=== PATIENT | female | born 1990 | race Caucasian/White ===

== ENCOUNTER 2016-04-23 23:20 | Emergency (ER) | payer MEDICAID ==
[2016-04-23] MEDS ORDERED: IPRATROPIUM/ALBUTEROL 0.5-2.5 MG/3 ML AMPUL NEB ONE ×2 (23:36→23:38)
[2016-04-23] MEDS ORDERED: METHYLPREDNISOLONE INJ 125 MG/2 ML SDV IV ONE (23:36)
[2016-04-23] MEDS ORDERED: METHYLPREDNISOLONE INJ 125 MG/2 ML SDV ONE (23:39)
[2016-04-23] MEDS ORDERED: ALBUTEROL SULFATE 0.083% NEB 2.5 MG/3 ML AMPUL NEB SCH (23:51)
[2016-04-23] MEDS ORDERED: MAGNESIUM SULFATE/D5W 1 GM/100 ML RTUPB IV ONE ×2 (23:53→23:54)
[2016-04-24 00:04] LABS: ABSOLUTE BASOPHILS # (AUTO) 0.1 10^3/uL (0.0-0.2); ABSOLUTE EOSINOPHILS # (AUTO) 0.8 10^3/uL (0.0-0.6); ABSOLUTE LYMPHOCYTES (AUTO) 3.8 10^3/uL (0.5-4.7); ABSOLUTE MONOCYTES (AUTO) 0.9 10^3/uL (0.1-1.4); ABSOLUTE NEUT (AUTO) 7.1 10^3/uL (1.7-8.2); BASOPHILS % (AUTO) 1.1 % (0-2); HEMOGLOBIN 13.3 g/dL (12.0-15.5); HGB HCT DIFFERENCE -1.1; LYMPHOCYTES % (AUTO) 29.7 % (13-45); MEAN CORPUSCULAR HEMOGLOBIN 26.9 pg (27.0-33.4); MEAN CORPUSCULAR HGB CONC 32.5 g/dL (32.0-36.0); MEAN CORPUSCULAR VOLUME 83 fl (80-97); MONOCYTES % (AUTO) 6.8 % (3-13); RED BLOOD COUNT 4.94 10^6/uL (3.72-5.28); RED CELL DISTRIBUTION WIDTH 14.9 % (11.5-14.0); SEGMENTED NEUTROPHILS % (AUTO) 56.4 % (42-78); WHITE BLOOD COUNT 12.6 10^3/uL (4.0-10.5)
[2016-04-24 00:17] LABS: ALANINE AMINOTRANSFERASE 46 U/L (9-52); ALKALINE PHOSPHATASE 92 U/L (38-126); ANION GAP 9 (5-19); ASPARTATE AMINO TRANSFERASE 28 U/L (14-36); BILIRUBIN,TOTAL 0.3 mg/dL (0.2-1.3); BLOOD UREA NITROGEN 9 mg/dL (7-20); CALCIUM 9.5 mg/dL (8.4-10.2); CARBON DIOXIDE 26 mmol/L (22-30); CHLORIDE 107 mmol/L (98-107); CREATININE RESULT 0.87 mg/dL (0.52-1.25); GLUCOSE 92 mg/dL (75-110); POTASSIUM 4.2 mmol/L (3.6-5.0); SODIUM 142.1 mmol/L (137-145)
--- NOTE | 2016-04-24 00:31 | ER Document Report ---
ED Respiratory Problem - General Chief Complaint: Asthma Exacerbation Stated Complaint: BREATHING DIFFICULTY Time seen by provider: 00:31 Mode of Arrival: Ambulatory Information source: Patient TRAVEL OUTSIDE OF THE [place] IN LAST 30 DAYS: No - HPI Patient complains to provider of: Asthma, Cough, Short of breath Onset: Yesterday Duration: Worse/persistent Initiating Event: URI Quality of pain: No pain Context: Smoker Short of Breath: Moderate Chest pain/discomfort: Tightness Cough: Productive Sputum amount: Small Sputum color: Clear Sputum consistency: Mucoid Associated symptoms: Congestion, Cough, Difficulty breathing Similar symptoms previously: Yes Recently seen / treated by doctor: No Notes: Patient is a 26-year-old female with a history of asthma who smokes, presenting to the emergency room complaining of cough, wheezing, chest tightness, and difficulty breathing that started yesterday evening and worsened today, she currently has no inhalers or nebulizer treatments at home, she denies a fever, no recent antibiotics or steroids - Related Data Allergies/Adverse Reactions: No Known Allergies Allergy (Verified 04/23/16 23:33) Past Medical History - General Information source: Patient - Social History Smoking Status: Current Every Day Smoker Chew tobacco use (# tins/day): No Frequency of alcohol use: None Drug Abuse: None Family History: Arthritis, DM, Hyperlipidemia, Hypertension, Thyroid Disfunction. denies: CAD, CVA, Malignancy Patient has suicidal ideation: No Patient has homicidal ideation: No Pulmonary Medical History: Reports: Hx Asthma Neurological Medical History: Reports: Hx Migraine Renal/ Medical History: Reports: Hx Kidney Stones. Denies: Hx Peritoneal Dialysis Psychiatric Medical History: Reports: Hx Depression Past Surgical History: Reports: Hx Adenoidectomy, Hx Tonsillectomy - Immunizations Immunizations up to date: Yes Hx Diphtheria, Pertussis, Tetanus Vaccination: Yes - 2011 Hx Pneumococcal Vaccination: 12/02/11 Review of Systems - Review of Systems Constitutional: No symptoms reported EENT: No symptoms reported Cardiovascular: No symptoms reported Respiratory: See HPI Gastrointestinal: No symptoms reported Genitourinary: No symptoms reported Female Genitourinary: No symptoms reported Musculoskeletal: No symptoms reported Skin: No symptoms reported Hematologic/Lymphatic: No symptoms reported Neurological/Psychological: No symptoms reported -: Yes All other systems reviewed and negative Physical Exam - Vital signs Vitals: Temp Pulse Resp BP Pulse Ox 98.5 F 110 H 28 H 127/87 H 92 04/23/16 23:28 04/23/16 23:28 04/23/16 23:28 04/23/16 23:28 04/23/16 23:28 Interpretation: Tachycardic, Tachypneic - General General appearance: Appears well, Alert - HEENT Head: Normocephalic, Atraumatic Eyes: Normal Pupils: PERRL - Respiratory Respiratory status: Tachypnea Chest status: Nontender Breath sounds: Nonproductive cough, Wheezing Chest palpation: Normal - Cardiovascular Rhythm: Regular Heart sounds: Normal auscultation Murmur: No - Abdominal Inspection: Normal Distension: No distension Bowel sounds: Normal Tenderness: Nontender Organomegaly: No organomegaly - Back Back: Normal, Nontender - Extremities General upper extremity: Normal inspection, Nontender, Normal color, Normal ROM , Normal temperature General lower extremity: Normal inspection, Nontender, Normal color, Normal ROM , Normal temperature, Normal weight bearing. No: Bev's sign - Neurological Neuro grossly intact: Yes Cognition: Normal Orientation: AAOx4 [place] Coma Scale Eye Opening: Spontaneous [place] Coma Scale Verbal: Oriented [place] Coma Scale Motor: Obeys Commands [place] Coma Scale Total: 15 Speech: Normal Motor strength normal: LUE, RUE, LLE, RLE Sensory: Normal - Psychological Associated symptoms: Normal affect, Normal mood - Skin Skin Temperature: Warm Skin Moisture: Dry Skin Color: Normal Course - Re-evaluation Re-evalutation: 04/24/16 01:31 Issue resting comfortably, reports feeling much better - Vital Signs Vital signs: Temp Pulse Resp BP Pulse Ox 98.5 F 110 H 34 H 113/96 H 91 L 04/23/16 23:28 04/23/16 23:28 04/24/16 01:00 04/24/16 00:23 04/24/16 01:00 - Laboratory Result Diagrams: 04/23/16 23:49 04/23/16 23:49 Laboratory results interpreted by me: 04/23/16 23:49 WBC 12.6 H MCH 26.9 L RDW 14.9 H Absolute Eosinophils 0.8 H - Diagnostic Test Radiology reviewed: Image reviewed, Reports reviewed Discharge - Discharge Clinical Impression: Acute asthma exacerbation Qualifiers: Asthma severity: mild persistent Qualified Code(s): J45.31 - Mild persistent asthma with (acute) exacerbation Condition: Stable Disposition: HOME, SELF-CARE Instructions: Inhaled Bronchodilators ([facility]), Stop Smoking ([facility]), Asthma ([facility]) Additional Instructions: Follow up with your primary care provider in one to 2 days. Return to the emergency room immediately if symptoms worsen or any additional concerns. Prescriptions: Albuterol Sulfate [Proair HFA Inhalation Aerosol 8.5 gm MDI] 1 puff IH Q4 PRN # 1 mdi PRN Reason: Azithromycin [Zithromax 250 mg Tablet] 250 mg PO ASDIR PRN #4 tablet PRN Reason: Prednisone 40 mg PO DAILY #8 tablet Referrals: EVAN FRANCIS MD [Primary Care Provider] - Follow up as needed
[2016-04-24] MEDS ORDERED: AZITHROMYCIN 250 MG TABLET PO ONE (01:33)
[2016-04-24] MEDS ORDERED: ALBUTEROL SULFATE HFA (90 MCG/PUFF) 8 GM MDI (1 MDI/ER DISP) IH SCH (02:00)
[2016-04-24 02:05] VITALS: BP 126/82
== END 2016-04-24 02:05 | disposition home or self-care (01) ==
LOC: ER 23:20
DX: J45.31 Mild persistent asthma with (acute) exacerbation (principal); R05 Cough; R06.02 Shortness of breath; R07.89 Other chest pain; F17.200 Nicotine dependence, unspecified, uncomplicated
CPT/HCPCS: 94640 ×2; 99285; 96375; 96365; 36415; 84703; 85025; 80053; 71020; Q0144; J2930; J3475; J3490; J7620

== ENCOUNTER 2017-03-24 18:03 | Emergency (ER) | payer SELFPAY ==
[2017-03-24 19:04] LABS: EPITHELIALS (WET MOUNT) 3+ EPITHELIALS SEEN; RBCS (WET MOUNT) NO RBCS SEEN; T.VAGINALIS (WET MOUNT) NO TRICHOMONAS SEEN; WBCS (WET MOUNT) 2+ WBCS SEEN; YEAST (WET MOUNT) NO YEAST SEEN
[2017-03-24 19:17] LABS: A TYPE INFLUENZA AG NEGATIVE (NEGATIVE); B INFLUENZA AG NEGATIVE (NEGATIVE)
[2017-03-24 19:40] LABS: APPEARANCE,URINE CLEAR; BILIRUBIN,URINE NEGATIVE (NEGATIVE); COLOR,URINE YELLOW; GLUCOSE, URINE NEGATIVE (NEGATIVE); KETONES,URINE NEGATIVE (NEGATIVE); LEUKOCYTE ESTERASE,URINE TRACE (NEGATIVE); NITRITE,URINE NEGATIVE (NEGATIVE); PROTEIN,URINE NEGATIVE (NEGATIVE); URINE SPECIFIC GRAVITY 1.018; UROBILINOGEN,URINE NEGATIVE mg/dL (<2.0)
[2017-03-24] MEDS ORDERED: AZITHROMYCIN 250 MG TABLET PO ONE (19:59)
[2017-03-24] MEDS ORDERED: CEFTRIAXONE INJ 250 MG VIAL IM ONE (19:59)
[2017-03-24] MEDS ORDERED: LIDOCAINE 1% INJ-PF (10 MG/ML) 30 ML SDV INJ ONE (19:59)
--- NOTE | 2017-03-24 20:02 | ER Document Report ---
ED GI/ - General Chief Complaint: Flu Symptoms Stated Complaint: PELVIC PAIN Time Seen by Provider: 03/24/17 18:29 Mode of Arrival: Ambulatory Information source: Patient Notes: 26-year-old female presents to ED for complaint of flulike symptoms for several days. She states she is also concerned for occasional pelvic pain and has not had a period since November. States she had a positive at home and would like a test while she is here. Patient is alert oriented speaks in full sentences able to walk with his even steady gait and no respiratory distress or any other distress noted. She is here with her 2 children. TRAVEL OUTSIDE OF THE [place] IN LAST 30 DAYS: No - HPI Patient complains to provider of: Pelvic pain, Other - Flulike symptoms Onset: Other - No period since November flu symptoms for the last couple days. States she has had pelvic pain off and on. Timing/Duration: Intermittent Quality of pain: Achy Severity at maximum: Moderate Severity in ED: Mild Pain Level: 1 Location: Pelvis Vaginal bleeding (Compared to normal period): None Menstrual period history: Missed LMP: November 2016 Associated symptoms: Other - No. Since November pelvic pain off and on some vaginal discharge and flulike symptoms Exacerbated by: Denies Relieved by: Denies Similar symptoms previously: Yes Recently seen / treated by doctor: No - Related Data Allergies/Adverse Reactions: No Known Allergies Allergy (Verified 03/24/17 18:04) Past Medical History - General Information source: Patient - Social History Smoking Status: Current Every Day Smoker Cigarette use (# per day): Yes - 5 cigarettes a day Chew tobacco use (# tins/day): No Smoking Education Provided: Yes - 4 minutes Frequency of alcohol use: None Drug Abuse: None Occupation: None Family History: Arthritis, COPD, CVA, DM, Hyperlipidemia, Hypertension, Thyroid Disfunction. denies: CAD, Malignancy Patient has suicidal ideation: No Patient has homicidal ideation: No - Past Medical History Cardiac Medical History: Reports: None Pulmonary Medical History: Reports: Hx Asthma EENT Medical History: Reports: None Neurological Medical History: Reports: Hx Migraine Endocrine Medical History: Reports: None Renal/ Medical History: Reports: Hx Kidney Stones Malignancy Medical History: Reports: None GI Medical History: Reports: None Musculoskeltal Medical History: Reports None Skin Medical History: Reports None Psychiatric Medical History: Reports: Hx Depression Traumatic Medical History: Reports: None Infectious Medical History: Reports: None Past Surgical History: Reports: Hx Adenoidectomy, Hx Tonsillectomy - Immunizations Immunizations up to date: Yes Hx Diphtheria, Pertussis, Tetanus Vaccination: Yes - 2011 Hx Pneumococcal Vaccination: 12/02/11 Review of Systems - Review of Systems Constitutional: Chills, Fever, Recent illness EENT: Nose discharge, Sinus discharge Cardiovascular: No symptoms reported Respiratory: Cough Gastrointestinal: No symptoms reported Genitourinary: No symptoms reported Female Genitourinary: Vaginal discharge, Other - Pelvic pain no. Since November Musculoskeletal: No symptoms reported Skin: No symptoms reported Hematologic/Lymphatic: No symptoms reported Neurological/Psychological: No symptoms reported -: Yes All other systems reviewed and negative Physical Exam - Vital signs Vitals: Temp Pulse Resp BP Pulse Ox 98.6 F 103 H 18 129/79 H 98 03/24/17 18:27 03/24/17 18:27 03/24/17 18:27 03/24/17 18:27 03/24/17 18:27 Interpretation: Normal - General General appearance: Appears well, Alert - HEENT Head: Normocephalic, Atraumatic Eyes: Normal Pupils: PERRL Ears: Normal External canal: Normal Tympanic membrane: Normal Sinus: Normal Nasal: Purulent discharge, Swelling Mouth/Lips: Normal Mucous membranes: Normal Pharynx: Normal Neck: Normal - Respiratory Respiratory status: No respiratory distress Chest status: Nontender Breath sounds: Normal Chest palpation: Normal - Cardiovascular Rhythm: Regular Heart sounds: Normal auscultation Murmur: No - Abdominal Inspection: Normal Distension: No distension Bowel sounds: Normal Tenderness: Nontender Organomegaly: No organomegaly - Genitourinary External exam: Normal Notes: Patient self swabbed for GC and chlamydia and wet mount as she did not want to have a pelvic in front of her children no abdominal tenderness no pelvic tenderness noted - Back Back: Normal, Nontender - Extremities General upper extremity: Normal inspection, Nontender, Normal color, Normal ROM , Normal temperature General lower extremity: Normal inspection, Nontender, Normal color, Normal ROM , Normal temperature, Normal weight bearing. No: Bev's sign - Neurological Neuro grossly intact: Yes Cognition: Normal Orientation: AAOx4 [place] Coma Scale Eye Opening: Spontaneous [place] Coma Scale Verbal: Oriented [place] Coma Scale Motor: Obeys Commands [place] Coma Scale Total: 15 Speech: Normal Motor strength normal: LUE, RUE, LLE, RLE Sensory: Normal - Psychological Associated symptoms: Normal affect, Normal mood - Skin Skin Temperature: Warm Skin Moisture: Dry Skin Color: Normal Course - Re-evaluation Re-evalutation: 03/24/17 23:56 Patient's assessment consistent with an upper respiratory infection. Flu test was negative. Urine was positive for negative for UTI wet mount was negative 03/24/17 23:56 Patient received her results from her GC and chlamydia before being discharged. - Vital Signs Vital signs: Temp Pulse Resp BP Pulse Ox 98.7 F 100 16 122/78 97 03/24/17 20:42 03/24/17 20:42 03/24/17 20:42 03/24/17 20:42 03/24/17 20:42 - Laboratory Laboratory results interpreted by me: 03/24/17 19:21 Ur Leukocyte Esterase TRACE H Urine HCG, Qual POSITIVE H Discharge - Discharge Clinical Impression: Pelvic pain, Viral respiratory illness Qualifiers: Weeks of gestation: less than 8 weeks Qualified Code(s): Z3A.01 - Less than 8 weeks gestation of Condition: Stable Disposition: HOME, SELF-CARE Instructions: [facility] [facility] Additional Instructions: UPPER RESPIRATORY ILLNESS: You have a viral infection of the respiratory passages -- a "cold." This common infection causes nasal congestion, drainage, and often sore throat and cough. It is highly contagious. The disease usually lasts about 10 to 14 days. There is no "cure" for the viral infection -- it must run its course. If there is a complication, such as bacterial infection in the nose, sinuses, middle ear, or bronchial tubes, antibiotics may be required. The antibiotics won't affect the virus. Drink plenty of fluids. A humidifier may help. An expectorant medication or decongestant may make you more comfortable. Use acetaminophen or ibuprofen for fever or aches. See the doctor if fever persists over two days, if there is any significant worsening of your symptoms, or if you simply fail to improve as expected. PELVIC PAIN: There are many causes of pain in the pelvic area. The cause could be the tubes, ovaries, uterus, intestines, appendix, pelvic muscles and connective tissue, or the urinary tract. The cause of your pelvic pain is not clear. However, it seems safe to treat you outside the hospital. If the pain sounds like a temporary problem, we sometimes wait to see if it goes away. Other patients may need additional tests, such as pelvic ultrasound or cultures. Conditions may change. Call us or come back for reexamination if any problems occur, such as: (1) Pain that becomes more severe, steady, or becomes concentrated in one specific area. Also, pain that is more severe with movement or coughing. (2) Vomiting that persists or becomes more frequent. (3) Blood in the vomitus, urine, or bowel movements. Blood in the stool may have a tarry or black appearance. (4) Shaking chills or fever greater than 100 degrees. (5) The abdomen becomes more distended or swollen. (6) Bowel movements cease. (7) Heavy vaginal bleeding. You are . care is best started as early in as possible. If you're unsure about continuing this , you should discuss this with your physician or with inside sales representative at [facility]. You should take only medications approved by your physician. Acetaminophen can safely be taken for minor pains. As a rule, medication for chronic conditions such as asthma or seizures can safely be continued. You should discuss with the physician every medicine you take. Any regular exercise program can be continued. Talk to your physician, however, before engaging in competitive or demanding sports. Alcohol, smoking, and "street drugs" are dangerous to your baby. Cocaine is especially dangerous. Don't use any illicit drugs! CEPHALOSPORINS: An antibiotic of the cephalosporin class has been prescribed. This type of antibiotic covers a wide variety of infections, including those of the skin, lungs, middle ear, and urinary tract. This antibiotic is somewhat similar to the penicillin family. In rare cases , a person who is allergic to penicillin will also be allergic to this medication. If you have had a severe allergic reaction to penicillin, and have not taken this antibiotic since that time, notify your doctor. Antibiotics which cover many germs ("broad spectrum" antibiotics) are more likely to cause diarrhea or "yeast" infections. Women prone to vaginal yeast problems may suffer an attack after taking this antibiotic. In infants, oral thrush (white spots "stuck" on the cheek) or yeast diaper rash may result. See your doctor if these problems occur. Call the doctor at once if you develop hives, itching, shortness of breath , or lightheadedness. AZITHROMYCIN: Azithromycin (Zithromax) is a broad spectrum antibiotic in the same class as erythromycin. It can treat a variety of bacterial infections, but is most frequently used for respiratory infections. Azithromycin is extremely long-lasting. It accumulates in body tissues and continues to kill bacteria for many days. In order to improve absorption, Azithromycin should be taken at least one hour before or two hours after a meal. It does not have the same strong tendency to upset the stomach as erythromycin and is usually very well tolerated. Patients who have had a rash or other true allergic reactions to erythromycin should not take this medication. Call if you develop gastrointestinal distress, severe diarrhea, rash, hives, itching, or shortness of breath. USE OF ACETAMINOPHEN (Tylenol): Acetaminophen may be taken for pain relief or fever control. It's much safer than aspirin, offering a wider range of "safe" dosages. It is safe during . Some brand names are Tylenol, Panadol, Datril, Anacin 3, Tempra, and Liquiprin. Acetaminophen can be repeated every four hours. The following are maximum recommended dosages: >89 pounds or adults 650 mg to 900 mg Acetaminophen can be repeated every four hours. Maximum dose not to exceed 4000 mg a day. SMOKING: If you smoke, you should stop smoking. The tar and chemicals in cigarette smoke are harmful. Smoking has been shown to cause: emphysema chronic bronchitis lung cancer mouth and throat cancer stomach and pancreas cancer premature aging defects In addition, smoking increases ear and lung infections in children of smokers. FOLLOW-UP CARE: If you have been referred to a physician for follow-up care, call the physician s office for an appointment as you were instructed or within the next two days. If you experience worsening or a significant change in your symptoms, notify the physician immediately or return to the Emergency Department at any time for re-evaluation. Forms: Elevated Blood Pressure, Smoking Cessation Education Referrals: [facility] [Provider Group] - Follow up as needed
[2017-03-24 20:27] LABS: CHLAM PCR NOT DETECTED (NOT DETECT); GON PCR NOT DETECTED (NOT DETECT)
[2017-03-24 20:44] VITALS: BP 122/78
== END 2017-03-24 20:47 | disposition home or self-care (01) ==
LOC: ER 18:03
DX: O26.91 Pregnancy related conditions, unspecified, first trimester (principal); R10.2 Pelvic and perineal pain; J98.8 Other specified respiratory disorders; O99.331 Smoking (tobacco) complicating pregnancy, first trimester; F17.210 Nicotine dependence, cigarettes, uncomplicated; Z3A.01 Less than 8 weeks gestation of pregnancy
CPT/HCPCS: 99406; 99284; 96372; 87210; 81025; 81001; 87491; 87591; 87804; J3490; J0696

== ENCOUNTER → 2017-04-30 | Outpatient (CLI) | payer SELFPAY ==
--- NOTE | 2017-04-30 16:44 | RADIOLOGY REPORT (SQ) ---
EXAM DESCRIPTION: U/S OB 14+ TRNABD 1GES W/O DOP COMPLETED DATE/TIME: 04/30/2017 3:34 pm REASON FOR STUDY: ENCOUNTER OR SUPERVISION OF OTHER NORMAL , SECOND TRIMESTER Z34.82 ENCOU NTER FOR SUPRVSN OF NORMAL , SECOND TRI COMPARISON: Somewhat limited by body habitus position and movement lack of distention urinary bladder. TECHNIQUE: Static and Dynamic grayscale imaging performed of gravid uterus using transabdominal appr oach. Additional selected color Doppler and spectral images recorded. All stored on PACS. LIMITATIONS: None. FINDINGS: EGA: 17 weeks 5 days ASHLYN: 10/06/2017 EFW: 201+/- 30 grams PERCENTILE: Not applicable. Fetus less than or equal to 20 weeks gestation. NICKOLAS: 4.9 cm PLACENTA: Posterior GRADE: I PRESENTATION: Variable ANATOMY: HEART RATE: 144 beats per minute. FOUR CHAMBER HEART: Not confirmed THREE VESSEL CORD: Yes. CORD INSERTION: Visualized. KIDNEYS AND BLADDER: Not well seen STOMACH: Visualized. Appears normal. SPINE: Not well seen BRAIN AND LATERAL VENTRICLES: Lateral ventricles normal. Brain not well seen. OTHER: There is a small hypoechoic area within the placenta measuring 2.2 x 1.3 x 1.9 cm. MATERNAL ADNEXA: Maternal ovaries not visualized. CERVICAL LENGTH: Not seen Closed. OTHER: No other significant finding. IMPRESSION: LIVING INTRAUTERINE . ESTIMATED GESTATIONAL AGE 17 weeks 5 days with an estimated date of delivery of 10/03/2017 Evaluation of anatomy is somewhat limited. There is a small placental venous mujica as an incide ntal finding. Trimester of : Second trimester - 13 weeks 1 day to 27 weeks 6 days. TECHNICAL DOCUMENTATION: JOB ID: [id number] [employer]- All Rights Reserved Reading location - IP/workstation name: [email or web address]
== END ==
LOC: RAD 14:39
PROVIDERS: ATTEND Nurse Practitioner Women's Health
DX: Z34.82 Encounter for supervision of other normal pregnancy, second trimester (principal)
CPT/HCPCS: 76805

== ENCOUNTER 2017-06-25 03:15 | Emergency (ER) | payer SELFPAY ==
[2017-06-25] MEDS ORDERED: IPRATROPIUM/ALBUTEROL 0.5-2.5 MG/3 ML AMPUL NEB ONE (03:22)
[2017-06-25] MEDS ORDERED: METHYLPREDNISOLONE INJ 125 MG/2 ML SDV IV ONE (03:22)
--- NOTE | 2017-06-25 03:25 | ER Document Report ---
ED General - General Chief Complaint: Asthma Exacerbation Stated Complaint: TROUBLE BREATHING Time Seen by Provider: 06/25/17 03:18 Notes: Patient is a pleasant 27-year-old female who presents with complaint of difficulty breathing. She is approximately 22 weeks . She said the last time she had asthma exacerbation like this was when she was with her first son. She is out of inhalers and her nebulizer machine is broken. She denies any recent fevers or infections. She says her breathing's been worsening over last to 3 days but became much worse tonight. She did have some leftover prednisone and she took 1 pill of prednisone 3 days ago. She denies any vomiting. She denies any significant abdominal pain other than some pain with coughing. She denies any vaginal bleeding or abnormal discharge and says her has otherwise been going well. She has no other complaints at this time. She has never been intubated for asthma. She has not been admitted in the last several years for asthma. TRAVEL OUTSIDE OF THE [place] IN LAST 30 DAYS: No - Related Data Allergies/Adverse Reactions: No Known Allergies Allergy (Verified 06/25/17 03:23) Past Medical History - Social History Smoking Status: Unknown if Ever Smoked Frequency of alcohol use: None Drug Abuse: None Family History: Arthritis, COPD, CVA, DM, Hyperlipidemia, Hypertension, Thyroid Disfunction. denies: CAD, Malignancy Pulmonary Medical History: Reports: Hx Asthma Neurological Medical History: Reports: Hx Migraine Renal/ Medical History: Reports: Hx Kidney Stones. Denies: Hx Peritoneal Dialysis Psychiatric Medical History: Reports: Hx Depression Past Surgical History: Reports: Hx Adenoidectomy, Hx Tonsillectomy - Immunizations Immunizations up to date: Yes Hx Diphtheria, Pertussis, Tetanus Vaccination: Yes - 2011 Hx Pneumococcal Vaccination: 12/02/11 Review of Systems - Review of Systems Notes: My Normal Review Basic REVIEW OF SYSTEMS: CONSTITUTIONAL : Denies fever, chills, or sweats. Denies recent illness. EENT: Denies eye, ear, throat, or mouth pain or symptoms. Denies nasal or sinus congestion. CARDIOVASCULAR: Denies chest pain. RESPIRATORY: Equal to breathing GASTROINTESTINAL: Denies abdominal pain. Denies nausea, vomiting, or diarrhea. Denies constipation. Last BM: GENITOURINARY: Denies difficulty urinating, painful urination, burning, frequency, or blood in urine. FEMALE GENITOURINARY: Denies vaginal bleeding, abnormal or irregular periods. LMP: Currently MUSCULOSKELETAL: Denies neck or back pain or joint pain or swelling. SKIN: Denies rash or skin lesions. NEUROLOGICAL: Denies altered mental status or loss of consciousness. Denies headache. Denies weakness or paralysis or loss of use of either side. Denies problems with gait or speech. Denies sensory or motor loss. ALL OTHER SYSTEMS REVIEWED AND NEGATIVE. Physical Exam - Vital signs Vitals: Pulse Resp BP Pulse Ox 113 H 30 H 113/77 90 L 06/25/17 03:23 06/25/17 03:23 06/25/17 03:23 06/25/17 03:23 - Notes Notes: General Appearance: Well nourished, alert, cooperative, moderate acute distress able to speak in 4-5 word sentences., no obvious discomfort. Vitals: reviewed, See vital signs table. Head: no swelling or tenderness to the head Eyes: PERRL, EOMI, Conjuctiva clear Mouth: No decreasd moisture Lungs: diffuse wheezing, No rales, No rhonci, mild accessory muscle use, fair air exchange bilaterally. Heart: Normal rate, Regular rythm, No murmur, no rub Abdomen: Normal BS, soft, No rigidity, No abdominal tenderness, No guarding, no rebound, no abdominal masses, no organomegaly Extremities: strength 5/5 in all extremities, good pulses in all extremities, no swelling or tenderness in the extremities, no edema. Skin: warm, dry, appropriate color, no rash Neuro: speech clear, oriented x 3, normal affect, responds appropriately to questions. Course - Re-evaluation Re-evalutation: 06/25/17 04:35 Patient is feeling much improved. Wheezing is now gone. We will monitor for another 30 minutes. If she continues to be wheezing free and look and feel well then she will be discharged home. 06/25/17 05:39 On reevaluation the patient continues to be free of wheezing and has good air movement and looks and feels well. She will be discharged home. I encouraged her return to ER immediately if she has recurrent difficulty breathing, fevers, or she feels unwell. Patient agrees with plan will be discharged home. Dictation of this chart was performed using voice recognition software; therefore, there may be some unintended grammatical errors. - Vital Signs Vital signs: Temp Pulse Resp BP Pulse Ox 113 H 18 123/70 92 06/25/17 03:23 06/25/17 05:00 06/25/17 04:01 06/25/17 05:00 Discharge - Discharge Clinical Impression: Asthma Qualifiers: Asthma severity: unspecified severity Asthma persistence: unspecified Asthma complication type: with acute exacerbation Qualified Code(s): J45.901 - Unspecified asthma with (acute) exacerbation Condition: Good Disposition: HOME, SELF-CARE Additional Instructions: ASTHMA: You have been diagnosed as having asthma. This is a condition where there is episodic tightness in the bronchial tubes. Allergies, infections, and polluted or cold air may be contributing factors. Emergency treatment of a severe asthma attack may include adrenaline shots , or bronchodilator aerosol. You may feel lightheaded, have a decreased exercise tolerance and a rapid pulse for an hour or two. Rest and get plenty of fluids. Home treatment of asthma requires bronchodilator drugs. These can be administered by injection, inhalation, or by mouth. Antibiotics and corticosteroids may be required for some patients. You should avoid chemical fumes, dusts, pollens, and exercising in very cold or dry air. If you smoke, stop!! If you develop a fever, increased wheezing, chest pain, or severe shortness of breath, you should contact the doctor immediately. STEROID MEDICATION: You have been given an injection of or oral medicine of the cortisone/ steroid class. This medication is used to control inflammation or allergy. Micah t is usually only given for a short period of time, until the acute process subsides. There are usually no side effects from short-term use of cortisone-like medications. Some persons feel an increased sense of well-being and are not sleepy at bedtime. Long-term use of cortisone medications is best avoided, unless required for a severe condition. If your condition does not remit, or relapses after the course of corticosteroid medication, you should consult your physician. INHALED BRONCHODILATORS: You have received treatment(s) of and/or prescription for an inhaled bronchodilator -- a medication which stimulates the airways in the lung to dilate. This improves the flow of air in asthma, bronchitis, and emphysema. These medicines have some similarity to adrenaline, and can cause similar side effects: shakiness, racing heart, and a sense of nervousness. These side effects decrease with time. Contact your doctor if these side effects are severe. Do not over-use the medicine. Too-frequent use of the inhaler may make it ineffective. Call your doctor if the inhaler is not controlling your symptoms at the prescribed doses. SMOKING: If you smoke, you should stop smoking. The tar and chemicals in cigarette smoke are harmful. Smoking has been shown to cause: emphysema chronic bronchitis lung cancer mouth and throat cancer stomach and pancreas cancer premature aging defects In addition, smoking increases ear and lung infections in children of smokers. FOLLOW-UP CARE: If you have been referred to a physician for follow-up care, call the physician s office for an appointment as you were instructed or within the next two days. If you experience worsening or a significant change in your symptoms, notify the physician immediately or return to the Emergency Department at any time for re-evaluation. Please use the inhaler as 2 puffs every 2-4 hours as needed for wheezing or difficulty breathing. Plesae return to the ER immediately if you have wheezingor diffiuclty breathing that is not improving with the inhaler. Prescriptions: Albuterol Sulfate [Albuterol Sulfate 2.5mg/3 mL] 2.5 mg IH Q4 PRN #25 vial PRN Reason: Prednisone 30 mg PO DAILY #12 tablet Forms: Return to Work
[2017-06-25] MEDS: MAGNESIUM SULFATE/D5W 1 GM/100 ML RTUPB IV SCH ×2 (03:32→03:33)
[2017-06-25] MEDS ORDERED: ALBUTEROL SULFATE HFA (90 MCG/PUFF) 8 GM MDI (1 MDI/ER DISP) IH ONE (04:40)
[2017-06-25 05:55] VITALS: BP 130/68
== END 2017-06-25 05:55 | disposition home or self-care (01) ==
LOC: ER 03:15
DX: O99.519 Diseases of the respiratory system complicating pregnancy, unspecified trimester (principal); J45.901 Unspecified asthma with (acute) exacerbation; O26.899 Other specified pregnancy related conditions, unspecified trimester; R05 Cough; Z3A.00 Weeks of gestation of pregnancy not specified
CPT/HCPCS: 94640; 99284; 96375; 96365; J2930; J3475; J3490; J7620

== ENCOUNTER → 2017-09-04 | Outpatient (CLI) | payer MEDICAID ==
--- NOTE | 2017-09-04 14:26 | RADIOLOGY REPORT (SQ) ---
EXAM DESCRIPTION: U/S OB 14+ TRNABD 1GES W/O DOP COMPLETED DATE/TIME: 09/04/2017 1:57 pm REASON FOR STUDY: Z34.83 ENCOUNTER FOR SUPRVSN OF NORMAL , THIRD TRIMESTER Z34.83 ENCOUNTE R FOR SUPRVSN OF NORMAL , THIRD TRIM COMPARISON: None. TECHNIQUE: Static and Dynamic grayscale imaging performed of gravid uterus using transabdominal appr oach. Additional selected color Doppler and spectral images recorded. All stored on PACS. LIMITATIONS: None. FINDINGS: EGA: 36 weeks 2 days ASHLYN: 09/30/2017 EFW: 2656+/- 393 grams PERCENTILE: 48 NICKOLAS: 8.4 PLACENTA: Fundal grade 2 PRESENTATION: Cephalic. ANATOMY: HEART RATE: 173 beats per minute. FOUR CHAMBER HEART: Visualized. THREE VESSEL CORD: Yes. CORD INSERTION: Visualized. KIDNEYS AND BLADDER: Visualized. Appear normal. STOMACH: Visualized. Appears normal. SPINE: Normal as visualized. BRAIN AND LATERAL VENTRICLES: Not well visualized. OTHER: No other significant finding. MATERNAL ADNEXA: Maternal ovaries not visualized. CERVICAL LENGTH: Not visualized OTHER: No other significant finding. IMPRESSION: LIVING INTRAUTERINE . ESTIMATED GESTATIONAL AGE 36 weeks 2 days NO VISUALIZED ANOMALIES. Trimester of : Third trimester - 28 weeks to delivery. TECHNICAL DOCUMENTATION: JOB ID: [id number] [employer]- All Rights Reserved Reading location - IP/workstation name: [email or web address]
== END ==
LOC: RAD 13:27
PROVIDERS: ATTEND Nurse Practitioner Women's Health
DX: Z34.83 Encounter for supervision of other normal pregnancy, third trimester (principal)
CPT/HCPCS: 76805

== ENCOUNTER 2017-09-18 04:37 | Inpatient (IN) | payer MEDICAID ==
[2017-09-18 05:25] LABS: APPEARANCE,URINE SLIGHTLY-CLOUDY; BILIRUBIN,URINE NEGATIVE (NEGATIVE); COLOR,URINE YELLOW; GLUCOSE, URINE NEGATIVE (NEGATIVE); KETONES,URINE NEGATIVE (NEGATIVE); LEUKOCYTE ESTERASE,URINE NEGATIVE (NEGATIVE); NITRITE,URINE NEGATIVE (NEGATIVE); PROTEIN,URINE 30 mg/dL (NEGATIVE); URINE SPECIFIC GRAVITY 1.018; UROBILINOGEN,URINE NEGATIVE mg/dL (<2.0)
[2017-09-18 05:29] LABS: AMNISURE (ROM) POSITIVE (NEGATIVE)
[2017-09-18 05:42] LABS: URINE AMPHETAMINES SCREEN NEGATIVE; URINE BARBITURATES SCREEN NEGATIVE; URINE BENZODIAZEPINES SCREEN NEGATIVE; URINE COCAINE SCREEN NEGATIVE; URINE METHADONE SCREEN NEGATIVE; URINE PHENCYCLIDINE SCREEN NEGATIVE
[2017-09-18 05:48] LABS: URINE MARIJUANA (THC) SCREEN UNCONFIRMED POSITIVE
[2017-09-18] MEDS ORDERED: RINGERS SOLUTION,LACTATED 1,000 ML IV ONE (05:49)
[2017-09-18] MEDS ORDERED: RINGERS SOLUTION,LACTATED 1,000 ML IV PRN (05:49)
[2017-09-18] MEDS ORDERED: PENICILLIN G POTASSIUM 5,000,000 UNIT in DEXTROSE 5%-WATER 100 ML IV ONE (05:49)
[2017-09-18] MEDS ORDERED: PENICILLIN G-K 5 MILLION UNIT VIAL ONE ×3 (06:00→14:40)
[2017-09-18] MEDS ORDERED: OXYTOCIN/NORMAL SALINE 0 UNIT/0 ML RTUINJ ONE (06:20)
[2017-09-18] MEDS ORDERED: OXYTOCIN/NORMAL SALINE 20 UNIT/1,000 ML RTUINJ IV PRN ×2 (06:24→17:08)
[2017-09-18 06:30] LABS: ABSOLUTE BASOPHILS # (AUTO) 0.1 10^3/uL (0.0-0.2); ABSOLUTE EOSINOPHILS # (AUTO) 0.2 10^3/uL (0.0-0.6); ABSOLUTE LYMPHOCYTES (AUTO) 2.4 10^3/uL (0.5-4.7); ABSOLUTE MONOCYTES (AUTO) 0.7 10^3/uL (0.1-1.4); ABSOLUTE NEUT (AUTO) 8.7 10^3/uL (1.7-8.2); BASOPHILS % (AUTO) 0.5 % (0-2); EOSINOPHILS % (AUTO) 1.9 % (0-6); HEMATOCRIT 33.1 % (36.0-47.0); HEMOGLOBIN 11.4 g/dL (12.0-15.5); LYMPHOCYTES % (AUTO) 19.9 % (13-45); MEAN CORPUSCULAR HEMOGLOBIN 30.1 pg (27.0-33.4); MEAN CORPUSCULAR HGB CONC 34.5 g/dL (32.0-36.0); MEAN CORPUSCULAR VOLUME 87 fl (80-97); PLATELET COUNT 244 10^3/uL (150-450); RED BLOOD COUNT 3.79 10^6/uL (3.72-5.28); RED CELL DISTRIBUTION WIDTH 14.6 % (11.5-14.0); SEGMENTED NEUTROPHILS % (AUTO) 71.7 % (42-78); TOTAL CELLS COUNTED % (AUTO) 100 %; WHITE BLOOD COUNT 12.1 10^3/uL (4.0-10.5)
[2017-09-18] MEDS ORDERED: MISOPROSTOL 0.2 MG TABLET ONE (07:37)
[2017-09-18] MEDS ORDERED: LIDOCAINE 1% INJ-PF (10 MG/ML) 30 ML SDV ONE (07:37)
[2017-09-18] MEDS ORDERED: OXYTOCIN/NORMAL SALINE 20 UNIT/1,000 ML RTUINJ ONE (07:37)
--- NOTE | 2017-09-18 08:37 | Admission Physical ---
Datetime Report Generated by CPN: 09/18/2017 08:36 CURRENT ADMISSION Hx Assessment: The History has been Reviewed and is Current Chief Complaint: Suspected Ruptured Membranes Indication for Induction: Not Applicable Admit Impression : No Active Labor; Ruptured Membranes Admit Plan: Admit to Unit ALLERGIES Medication Allergies: No Medication Allergies: No Known Allergies (09/18/2017) Latex: No Latex Allergies Food Allergies: N/A Environmental Allergies: N/A OBSTETRICAL HISTORY EDC: 10/08/2017 00:00 : 4 Para: 2 Term: 2 : 0 SAB: 0 IAB: 1 Ectopic: 0 Livin Cesareans: 0 VBACs: 0 Multiple Births: 0 Gestational Diabetes: No Rh Sensitization: No Incompetent Cervix: No AMADEO: No Infertility: No ART Treatment: No Uterine Anomaly: No IUGR: No Hx Previous C/S: No Macrosomia: No Hx Loss/Stillborn: No PIH: No Hx : No Placenta Previa/Abruption: No Depression/PP Depression: No PTL/PROM: No Post Hemorrhage: No Current Procedures: Ultrasound; NST Obstetrical History Comments: G1- 2011 , term delivery G2- EAB 2014 G3- 2016 SVE, term delivery G4- current SEE RECORDS Alcohol: No Marijuana : No Cocaine: No Other Illicit Drugs: No Cigarettes: Never Smoker. [id number] MEDICAL HISTORY Diabetes: No Blood Transfusion: No Pulmonary Disease (Asthma, TB): Yes Breast Disease: No Hypertension: No Floral Artist Surgery: No Heart Disease: No Hosp/Surgery: No Autoimmune Disorder: No Anesthetic Complications: No Kidney Disease: No Abnormal Pap Smear: No Neuro/Epilepsy: No Psychiatric Disorders: No Other Medical Diseases: No Hepatitis/Liver Disease: No Significant Family History: No Varicosities/Phlebitis: No Trauma/Violence : No Thyroid Dysfunction: No Medical History Comments: asthma INFECTIOUS HISTORY Gonorrhea: No Genital Herpes: No Chlamydia: No Tuberculosis: No Syphilis: No Hepatitis: No HIV/AIDS Exposure: No Rash or Viral Illness: No HPV: No PHYSICAL EXAM General: Normal HEENT: Deferred Neurologic: Normal Thyroid: Normal Heart: Normal Lungs: Normal Breast: Deferred Back: Normal Abdomen: Normal Genitourinary Exam: Normal Extremities: Normal DTRs: Normal Pelvic Type: Adequate Physical Exam Comments: NOB labs done 08-27-17 at [facility], 1st visit 04-12-17 @ [facility] , 2 nd visit 04-25-17, 3rd visit 08-27-17 Smoker ROM > 12 hours Disengaged from [facility] and declines transfer to [facility] due to transportation Asthma, Hx Anxiety, Depression/PTSD, no meds Late entry to care FETUS A EGA: 37.1 Admit Comment: admitted to LD for ROM Sporadic care Sono 04-30-17 = 17+5, EDC 18, sono 09-04-17= 36+ 2 Desires BTL Cat 1 strip, irregular uc's, Dr. Duarte in to see pt and discussed POC, Pitocin infusing, will start antibiotics for prolonged ROM PLANS FOR LABOR AND DELIVERY Labor and Delivery: None Pain Management: None Feeding Preference: Breast Benefit of Breast Feed Discussed: Yes Circumcision: No INFORMED CONSENT Assignment: Yanni Duarte MD Signature: with User ID: [email or web address] : with User ID: Rich
--- NOTE | 2017-09-18 12:27 | L&D Progress Notes ---
PROGRESS NOTES Datetime Report Generated by CPN: 09/18/2017 12:27 PROGRESS NOTE Impression: Normal Progression of Labor; Reassuring Heart Rate Procedures: Intrauterine Pressure Catheter; Scalp Electrode Plan: Continue Present Management; Induction Vital Signs : Reviewed; Within Normal Limits Comment: FSE and IUPC placed for difficulty picking up UC's and heart rate, pt tolerated precedures well, Cat 1 strip, mod variability,, BL 145, variables with UC's, desires epidural SIGNATURE SIGNATURE: [id number] SIGNATURE: [id number] Assignment: Yanni Duarte MD Signature: with User ID: [email or web address] : with User ID: [email or web address]
[2017-09-18] MEDS ORDERED: BUPIVACAINE HCL 0.25 % INJ/PF (2.5 MG/1 ML) 30 ML VIAL ONE (12:35)
[2017-09-18] MEDS ORDERED: EPHEDRINE SULFATE INJ 50 MG/1 ML AMPULE ONE (12:35)
[2017-09-18] MEDS ORDERED: FENTANYL/BUPIVACAINE/NS/PF 200 MCG/100 ML RTUINJ EPI ONE (12:37)
[2017-09-18] MEDS ORDERED: FENTANYL CITRATE INJ/PF 100 MCG/2 ML AMPUL ONE (13:10)
--- NOTE | 2017-09-18 13:36 | L&D Progress Notes ---
PROGRESS NOTES Datetime Report Generated by CPN: 09/18/2017 13:35 PROGRESS NOTE Comment: Feeling pressure after epidural, VE, 5/thick/-3/vtx, comfortable with epiural, variables with UC's, Mod variability FETUS C SIGNATURE: [id number];[id number] Assignment: Yanni Duarte MD Signature: with User ID: [email or web address] : with User ID: [email or web address]
[2017-09-18 14:08] LABS: CHLAM PCR NOT DETECTED (NOT DETECT); GON PCR NOT DETECTED (NOT DETECT)
[2017-09-18] MEDS ORDERED: ALBUTEROL SULFATE HFA (90 MCG/PUFF) 200 PUFF/8.5 GM MDI IH PRN (14:43)
[2017-09-18] MEDS ORDERED: MAGNESIUM HYDROXIDE SUSP 30 ML UDCUP PO PRN (17:08)
[2017-09-18] MEDS ORDERED: PROMETHAZINE HCL 25 MG SUPP.RECT PR PRN (17:08)
[2017-09-18] MEDS ORDERED: PSEUDOEPHEDRINE HCL 30 MG TABLET PO PRN (17:08)
[2017-09-18] MEDS ORDERED: ZOLPIDEM TARTRATE 5 MG TABLET PO PRN (17:08)
[2017-09-18] MEDS ORDERED: NA PHOS,M-B/NA PHOS,DI-BA (ADULT) 133 ML ENEMA PR PRN (17:08)
[2017-09-18] MEDS ORDERED: DIPH/PERTUSS(ACELL)/TETANUS VAC/PF 0.5 ML SYR (>=10YO) IM PRN (17:08)
[2017-09-18] MEDS ORDERED: MEASLES,MUMPS&RUBELLA VACC/PF 0.5 ML VIAL SUBCUT PRN (17:08)
[2017-09-18] MEDS ORDERED: ACETAMINOPHEN 650 MG SUPP.RECT PR PRN (17:08)
[2017-09-18] MEDS ORDERED: PROMETHAZINE HCL 25 MG TABLET PO PRN (17:08)
[2017-09-18] MEDS ORDERED: GLYCERIN/WITCH HAZEL LEAF 1 EACH MED..PAD TP PRN (17:08)
[2017-09-18] MEDS ORDERED: DIBUCAINE 1% OINTMENT 28 GM TP PRN (17:08)
[2017-09-18] MEDS ORDERED: ACETAMINOPHEN WITH CODEINE #3 TABLET PO PRN ×2 (17:08)
[2017-09-18] MEDS ORDERED: PROMETHAZINE HCL INJ 25 MG/1 ML VIAL IV PRN (17:08)
[2017-09-18] MEDS ORDERED: BENZOCAINE/MENTHOL AEROSOL SPRAY 56 ML TOP PRN (17:08)
[2017-09-18] MEDS ORDERED: DIPHENHYDRAMINE HCL 25 MG CAPSULE PO PRN (17:08)
--- NOTE | 2017-09-18 18:22 | Delivery Summary ---
Del Sum A-C Datetime Report Generated by CPN: 09/18/2017 18:22 DELIVERY PERSONNEL DELIVERY PERSONNEL: [id number] Delivery Doctor:: Yanni Duarte MD Labor and Delivery Nurse:: Mariama Lea RN Cover Marker:: SHINE Paez Nursery Nurse:: Sarita Alcazar RN Nursery Nurse:: Molly Pop RN Design Manager/DATA MANAGEMENT SPECIALIST: Haylee Saucedo CNA II Additional Personnel: : A Savannah RN MATERNAL INFORMATION Delivery Anesthesia: Epidural Medications After Delivery: Pitocin Bolus-Please Comment Estimated Blood Loss (ml): 200 Maternal Complications: Other Complication Details: srom LABOR SUMMARY EDC: 10/08/2017 00:00 No. Babies in Womb: 1 Attempted: No Labor Anesthesia: Epidural LABOR INFORMATION Reason for Induction: Premature Rupture of Membranes Onset of Labor: 09/18/2017 13:32 Complete Dilatation: 09/18/2017 16:36 Oxytocin: Augmentation Group B Beta Strep: Unknown Antibiotics # of Doses: 3 Antibiotics Time of Last Dose: 1440 Name of Antibiotic Given: Penicillin Steroids Given: None Reason Steroids Not Administered: Not Applicable Other Reason Not Administered: n/a MEMBRANES Membranes Rupture Method: Spontaneous Rupture of Membranes: 09/17/2017 20:00 Length of Rupture (hr): 20.87 Amniotic Fluid Color: Clear Amniotic Fluid Amount: Small Amniotic Fluid Odor: Normal STAGES OF LABOR Stage 1 hr: 3 Stage 1 min: 4 Stage 2 hr: 0 Stage 2 min: 16 Stage 3 hr: 0 Stage 3 min: 6 Total Time in Labor hr: 3 Total Time in Labor min: 26 VAGINAL DELIVERY Episiotomy: None Laceration #1: None Laceration Extension #1: N/A Laceration Repair: Not Applicable Sponge Count Correct: N/A CSECTION DELIVERY Primary Indication: N/A Secondary Indication: N/A BABY A INFORMATION Delivery Date/Time: 09/18/2017 16:52 Method of Delivery: Vaginal Born in Route : No : N/A Forceps: N/A Vacuum Extraction: N/A Shoulder Dystocia : No PRESENTATION/POSITION BABY A Presentation: Cephalic Cephalic Presentation: Vertex Vertex Position: Left Occipital Anterior Breech Presentation: N/A PLACENTA INFORMATION BABY A Placenta Delivery Time : 09/18/2017 16:58 Placenta Method of Delivery: Spontaneous Placenta Status: Delivered SCORES BABY A Heart Rate 1 min: >100 bpm Resp Effort 1 min: Good Cry Reflex Irritability 1 min: Cough or Sneeze or Pulls Away Muscle Tone 1 min: Some Flexion of Extremities Color 1 min: Blue/Pale Resuscitation Effort 1 min: Tactile Stimulation SCORE 1 MIN: 7 Heart Rate 5 min: >100 bpm Resp Effort 5 min: Good Cry Reflex Irritability 5 min: Cough or Sneeze or Pulls Away Muscle Tone 5 min: Active Motion Color 5 min: Body [place], Extremities Blue Resuscitation Effort 5 min: N/A SCORE 5 MIN: 9 INFANT INFORMATION BABY A Gestational Age at Delivery: 37.1 Gestational Status: Early Term- 37- 38.6 Weeks Infant Outcome : Liveborn Infant Condition : Stable Sex: Male IDENTIFICATION BABY A Verification Date/Time: 09/18/2017 17:16 ID Band Number: [id number] Mother's Name Verified: Yes Infant RN Verifying Infant: Duarte Alcazar, RN Additional Verifying Personnel: Ho Pop RN WEIGHT/LENGTH BABY A Birthweight (gm): 3080 Infant Weight (lb): 6 Infant Weight (oz): 13 Infant Length (in): 20.00 Infant Length (cm): 50.80 CORD INFORMATION BABY A No. Cord Vessels: 3 Nuchal Cord : Around Neck x2, Tight Cord Blood Taken: Yes-For Eval (Mom's Blood Type - or O+) Infant Suction: Mouth; Nose ASSESSMENT BABY A Complications: None Physical Findings at Delivery: Within Normal Limits Respirations: Appears Normal Skin to Skin: Yes Skin to Skin Time (min): 60 Information Services Assistant/ALS Called : No Care By: Duarte Alcazar RN Transferred To: Remains with Mother BABY B INFORMATION : N/A SIGNATURES Signature: with User ID: [email or web address]
[2017-09-18] MEDS: IBUPROFEN 800 MG TABLET PO SCH (21:29)
[2017-09-18] MEDS: FAMOTIDINE 20 MG TABLET PO SCH (21:30)
[2017-09-18] MEDS: FERROUS SULFATE 325 MG TABLET PO SCH (21:34)
[2017-09-18] MEDS: DOCUSATE SODIUM 100 MG CAPSULE PO SCH (21:34)
[2017-09-18] MEDS: PENICILLIN G POTASSIUM 2,500,000 UNIT in DEXTROSE 5%-WATER 50 ML IV SCH (21:37)
[2017-09-19] MEDS: PENICILLIN G POTASSIUM 2,500,000 UNIT in DEXTROSE 5%-WATER 50 ML IV SCH ×2 (01:43→05:24)
[2017-09-19] MEDS: IBUPROFEN 800 MG TABLET PO SCH ×3 (05:25→22:26)
[2017-09-19 07:37] LABS: HEMATOCRIT 28.5 % (36.0-47.0); HEMOGLOBIN 9.8 g/dL (12.0-15.5); MEAN CORPUSCULAR HEMOGLOBIN 29.8 pg (27.0-33.4); MEAN CORPUSCULAR HGB CONC 34.3 g/dL (32.0-36.0); MEAN CORPUSCULAR VOLUME 87 fl (80-97); PLATELET COUNT 222 10^3/uL (150-450); RED BLOOD COUNT 3.28 10^6/uL (3.72-5.28); RED CELL DISTRIBUTION WIDTH 14.2 % (11.5-14.0); WHITE BLOOD COUNT 11.3 10^3/uL (4.0-10.5)
--- NOTE | 2017-09-19 09:07 | PDOC PROGRESS REPORT ---
Subjective-OB Progress Note for:: 09/19/17 Subjective: Doing well, no c/o, on computer, voiding, scnt bleeding Physical Exam (OB) Vital Signs: Temp Pulse Resp BP Pulse Ox 98.0 F 90 16 111/54 L 100 09/19/17 07:44 09/19/17 07:44 09/19/17 07:44 09/19/17 07:44 09/19/17 07:44 Intake & Output 09/18/17 09/19/17 09/20/17 06:59 06:59 06:59 Weight 101.9 kg - Lochia Lochia Amount: Scant < 10 ml Lochia Color: Rubra/Red - Abdomen Description: Soft, Round Hernia Present: No Fundal Description: Firm, Midline Fundal Height: u/u - u/2 Objective-Diagnostic Laboratory: 09/19/17 07:15 09/19/17 07:15 WBC 11.3 H RBC 3.28 L Hgb 9.8 L Hct 28.5 L MCV 87 MCH 29.8 MCHC 34.3 RDW 14.2 H Plt Count 222 Assessment and Plan(PN) - Assessment and Plan (1) Vaginal delivery Is this a current diagnosis for this admission?: Yes - Time Spent with Patient Time with patient: Less than 15 minutes Medications reviewed and adjusted accordingly: Yes - Disposition Anticipated Discharge: Home Within: within 48 hours
[2017-09-19] MEDS: FERROUS SULFATE 325 MG TABLET PO SCH ×2 (09:41→17:12)
[2017-09-19] MEDS: DOCUSATE SODIUM 100 MG CAPSULE PO SCH ×2 (09:41→17:12)
[2017-09-19] MEDS: PRENATAL VITAMIN W DHA CAPSULE PO SCH (09:41)
[2017-09-19] MEDS: FAMOTIDINE 20 MG TABLET PO SCH ×2 (09:41→22:26)
[2017-09-19] MEDS: SENNOSIDES/DOCUSATE 8.6-50 MG 1 EACH TABLET PO SCH (09:41)
[2017-09-20] MEDS: IBUPROFEN 800 MG TABLET PO SCH ×2 (05:44→14:08)
[2017-09-20 08:52] VITALS: BP 111/54
[2017-09-20] MEDS: FERROUS SULFATE 325 MG TABLET PO SCH (09:58)
[2017-09-20] MEDS: PRENATAL VITAMIN W DHA CAPSULE PO SCH (09:58)
[2017-09-20] MEDS: FAMOTIDINE 20 MG TABLET PO SCH (09:58)
[2017-09-20] MEDS: DOCUSATE SODIUM 100 MG CAPSULE PO SCH (10:01)
[2017-09-20] MEDS: SENNOSIDES/DOCUSATE 8.6-50 MG 1 EACH TABLET PO SCH (10:01)
--- NOTE | 2017-09-20 10:21 | PDOC DISCHARGE SUMMARY ---
Final Diagnosis Discharge Date: 09/20/17 - Final Diagnosis (1) Limited care Is this a current diagnosis for this admission?: Yes (2) Vaginal delivery Is this a current diagnosis for this admission?: Yes Discharge Data - Discharge Medication Home Medications: No.116/Iron/Folic/Dha [Expecta Combo Pack] 1 tab PO DAILY 09/03 Albuterol Sulfate [Proair HFA Inhalation Aerosol 8.5 gm MDI] 1 puff IH Q4 PRN # 1 mdi 04/24/16 Reason(s) for Admission: Induction of Labor, PROM Procedures: NST Intrapartum Procedure(s): Spontaneous Vaginal Delivery Laceration-Degree: 1st - Diagnosis Test Laboratory: Temp Pulse Resp BP Pulse Ox 97.9 F 97 16 111/54 L 99 09/20/17 08:51 09/20/17 08:51 09/20/17 08:51 09/20/17 08:51 09/20/17 08:51 09/18/17 09/18/17 09/19/17 05:00 06:13 07:15 RBC 3.79 3.28 L Hgb 11.4 L 9.8 L Hct 33.1 L 28.5 L Urine Opiates Screen NEGATIVE - Discharge information/Instructions Discharge Activity: Activity As Tolerated, Balance Activity w/Rest, No Lifting Over 10 Pounds, No Lifting/Push/Pulling, Pelvic Rest Discharge Diet: Regular Disposition: HOME, SELF-CARE Follow up with: [facility], Disengaged from [facility] in: 4, Weeks
== END 2017-09-20 16:38 | disposition home or self-care (01) | DRG 775 ==
LOC: LC 04:37 → LR 05:38 → 2N 19:46
PROVIDERS: ADMIT Obstetrics & Gynecology; ATTEND Obstetrics & Gynecology
PROC: 10E0XZZ Delivery of Products of Conception, External Approach (ICD-10-PCS; principal; 2017-09-17)
PROC: 10H07YZ Insertion of Other Device into Products of Conception, Via Natural or Artificial Opening (ICD-10-PCS; 2017-09-17)
PROC: 4A1H7CZ Monitoring of Products of Conception, Cardiac Rate, Via Natural or Artificial Opening (ICD-10-PCS; 2017-09-17)
PROC: 4A1HXCZ Monitoring of Products of Conception, Cardiac Rate, External Approach (ICD-10-PCS; 2017-09-17)
PROC: 3E0234Z Introduction of Serum, Toxoid and Vaccine into Muscle, Percutaneous Approach (ICD-10-PCS; 2017-09-20)
DX: O99.334 Smoking (tobacco) complicating childbirth (principal); O99.344 Other mental disorders complicating childbirth; O99.52 Diseases of the respiratory system complicating childbirth; J45.909 Unspecified asthma, uncomplicated; F32.9 Major depressive disorder, single episode, unspecified; F43.10 Post-traumatic stress disorder, unspecified; Z3A.37 37 weeks gestation of pregnancy; Z37.0 Single live birth; Z23 Encounter for immunization
CPT/HCPCS: 36415; 80307; 80349; 81005; 84112; 85025; 85027; 86592; 86850; 86900; 86901; 87491; 87591; 90715; 94760; G0480; J2540; J2590; J3010; J3490

== ENCOUNTER 2017-09-28 03:11 | Emergency (ER) | payer MEDICAID ==
[2017-09-28] MEDS ORDERED: IPRATROPIUM/ALBUTEROL 0.5-2.5 MG/3 ML AMPUL NEB ONE (03:18)
[2017-09-28] MEDS ORDERED: MAGNESIUM SULFATE/D5W 1 GM/100 ML RTUPB IV ONE (03:29)
[2017-09-28] MEDS ORDERED: NORMAL SALINE 1000 ML 1,000 ML IV ONE ×2 (03:29→05:27)
[2017-09-28] MEDS ORDERED: METHYLPREDNISOLONE INJ 125 MG/2 ML SDV IV ONE (03:29)
[2017-09-28 03:52] LABS: ABSOLUTE BASOPHILS # (AUTO) 0.1 10^3/uL (0.0-0.2); ABSOLUTE EOSINOPHILS # (AUTO) 0.5 10^3/uL (0.0-0.6); ABSOLUTE LYMPHOCYTES (AUTO) 2.2 10^3/uL (0.5-4.7); ABSOLUTE MONOCYTES (AUTO) 0.8 10^3/uL (0.1-1.4); ABSOLUTE NEUT (AUTO) 9.8 10^3/uL (1.7-8.2); BASOPHILS % (AUTO) 0.5 % (0-2); EOSINOPHILS % (AUTO) 3.8 % (0-6); HEMATOCRIT 37.1 % (36.0-47.0); HEMOGLOBIN 12.5 g/dL (12.0-15.5); LYMPHOCYTES % (AUTO) 16.3 % (13-45); MEAN CORPUSCULAR HEMOGLOBIN 29.3 pg (27.0-33.4); MEAN CORPUSCULAR HGB CONC 33.8 g/dL (32.0-36.0); MEAN CORPUSCULAR VOLUME 87 fl (80-97); MONOCYTES % (AUTO) 5.7 % (3-13); PLATELET COUNT 408 10^3/uL (150-450); RED BLOOD COUNT 4.28 10^6/uL (3.72-5.28); RED CELL DISTRIBUTION WIDTH 14.1 % (11.5-14.0); SEGMENTED NEUTROPHILS % (AUTO) 73.7 % (42-78); TOTAL CELLS COUNTED % (AUTO) 100 %; WHITE BLOOD COUNT 13.4 10^3/uL (4.0-10.5)
[2017-09-28 04:02] LABS: ANION GAP 13 (5-19); BLOOD UREA NITROGEN 13 mg/dL (7-20); CALCIUM 10.2 mg/dL (8.4-10.2); CARBON DIOXIDE 26 mmol/L (22-30); CHLORIDE 107 mmol/L (98-107); GLUCOSE 100 mg/dL (75-110); POTASSIUM 4.4 mmol/L (3.6-5.0); SODIUM 145.6 mmol/L (137-145)
[2017-09-28] MEDS ORDERED: ALBUTEROL SULFATE 0.083% NEB 2.5 MG/3 ML AMPUL NEB ONE (04:02)
[2017-09-28] MEDS ORDERED: TERBUTALINE SULFATE INJ/PF 1 MG/1 ML SDV SUBCUT ONE (04:12)
--- NOTE | 2017-09-28 05:30 | RADIOLOGY REPORT (SQ) ---
EXAM DESCRIPTION: CT CHEST ANGIOGRAPHY WITHOUT THEN WITH IV CONTRAST COMPLETED DATE/TME: 09/28/2017 04:12 CLINICAL HISTORY: 27 years Female, sob recent childbirth 09/18/17 Comparison: 5.. Technique: IV contrast. Coronal and sagittal reformat. 3d reconstruction. This exam was performed according to our departmental dose-optimization program, which includes automated exposure control, adjustment of the mA and/or kV according to patient size and/or use of iterative reconstruction technique.[facility]: Dose Right [facility]: CareDose [facility]: Dose Right [facility]: Teradose 4D [facility]: Repunch LIMITATIONS: Quality: Inadequate for assessment of the pulmonary arteries. Findings: Small groundglass patchy opacities of the lingula and minimally of the right middle lobe. There is inadequate enhancement of the pulmonary arterial system significantly decreasing sensitivity of this exam. There is no gross evidence of pulmonary embolus. Consider repeat, alternative, or surveillance investigation as clinically warranted. No right ventricular strain. 0.5 cm x 0.4 left basilar juxtapleural nodule stable compared with prior exam from June 29, 2014, likely benign; annual routine follow-up recommended. Inferior neck, axillae, mediastinum, airway, lymphatics, heart, vasculature, upper abdomen, and musculoskeleton appear unremarkable. Impression: 1. There is inadequate enhancement of the pulmonary arterial system significantly decreasing sensitivity of this exam. There is no gross evidence of pulmonary embolus. Consider repeat, alternative, or surveillance investigation as clinically warranted. 2. Minimal groundglass patchy opacities in the lingula and right middle lobe. Differential diagnosis includes atypical pneumonitis or mild chronic interstitial lung disease.
[2017-09-28] MEDS ORDERED: AZITHROMYCIN INJ 500 MG VIAL IV ONE (05:34)
[2017-09-28] MEDS ORDERED: CEFTRIAXONE 1 GM/D5W RTU 1 GM/50 ML RTUPB IV ONE (05:34)
[2017-09-28] MEDS ORDERED: LEVOFLOXACIN 500 MG/D5W RTU 500 MG/100 ML RTUPB IV ONE (06:09)
--- NOTE | 2017-09-28 06:23 | ER Document Report ---
ED General - General Chief Complaint: Shortness Of Breath Stated Complaint: TROUBLE BREATHING Time Seen by Provider: 09/28/17 03:28 TRAVEL OUTSIDE OF THE [place] IN LAST 30 DAYS: No - HPI Patient complains to provider of: Shortness of breath Notes: Patient coming in for evaluation of shortness of breath. Patient states has history of asthma. Patient states hospitalizations in the past no ICU admissions no intubations. Patient states she is currently 8-9 weeks . Patient states no recent antibiotics no recent steroid use. Patient denies any recent travel. Denies any pain. Pulmonary evaluation patient is tachypneic and tachycardic with oxygenation 90-93 resting - Related Data Allergies/Adverse Reactions: No Known Allergies Allergy (Verified 09/18/17 05:51) Past Medical History - Social History Smoking Status: Current Every Day Smoker Chew tobacco use (# tins/day): No Frequency of alcohol use: None Drug Abuse: None Family History: Arthritis, COPD, CVA, DM, Hyperlipidemia, Hypertension, Thyroid Disfunction. denies: CAD, Malignancy Patient has suicidal ideation: No Patient has homicidal ideation: No Pulmonary Medical History: Reports: Hx Asthma Neurological Medical History: Reports: Hx Migraine Renal/ Medical History: Reports: Hx Kidney Stones. Denies: Hx Peritoneal Dialysis Psychiatric Medical History: Reports: Hx Depression Past Surgical History: Reports: Hx Adenoidectomy, Hx Tonsillectomy - Immunizations Immunizations up to date: Yes Hx Diphtheria, Pertussis, Tetanus Vaccination: Yes - 2011 Hx Pneumococcal Vaccination: 12/02/11 Review of Systems - Review of Systems Constitutional: No symptoms reported EENT: No symptoms reported Cardiovascular: No symptoms reported Respiratory: Cough, Short of breath, Wheezing Gastrointestinal: No symptoms reported Genitourinary: No symptoms reported Female Genitourinary: No symptoms reported Musculoskeletal: No symptoms reported Skin: No symptoms reported Hematologic/Lymphatic: No symptoms reported Neurological/Psychological: No symptoms reported -: Yes All other systems reviewed and negative Physical Exam - Vital signs Vitals: Pulse Ox 95 09/28/17 03:20 Interpretation: Tachycardic, Hypoxic, Tachypneic - General General appearance: Appears well, Alert - HEENT Head: Normocephalic, Atraumatic Eyes: Normal Pupils: PERRL - Respiratory Respiratory status: No respiratory distress Chest status: Nontender Breath sounds: Rhonchi, Wheezing Chest palpation: Normal - Cardiovascular Rhythm: Regular Heart sounds: Normal auscultation Murmur: No - Abdominal Inspection: Normal Distension: No distension Bowel sounds: Normal Tenderness: Nontender Organomegaly: No organomegaly - Back Back: Normal, Nontender - Extremities General upper extremity: Normal inspection, Nontender, Normal color, Normal ROM , Normal temperature General lower extremity: Normal inspection, Nontender, Normal color, Normal ROM , Normal temperature, Normal weight bearing. No: Bev's sign - Neurological Neuro grossly intact: Yes Cognition: Normal Orientation: AAOx4 Fontana Coma Scale Eye Opening: Spontaneous Fontana Coma Scale Verbal: Oriented Vaughn Coma Scale Motor: Obeys Commands Fontana Coma Scale Total: 15 Speech: Normal Motor strength normal: LUE, RUE, LLE, RLE Sensory: Normal - Psychological Associated symptoms: Normal affect, Normal mood - Skin Skin Temperature: Warm Skin Moisture: Dry Skin Color: Normal Course - Re-evaluation Re-evalutation: 09/28/17 06:21 Patient underwent a CTA which did not show any slurring of large pulmonary emboli but did show signs of groundglass opacities possible atypical pneumonia. Patient was given a dose of antibiotics. During her visit here patient patient's oxygenation continued to drop to 88% requiring 2 L of oxygenation. Also requiring oxygen and possible diagnosis of pneumonia this is related. Discussed with hospitalist will admit for further evaluation. - Vital Signs Vital signs: Temp Pulse Resp BP Pulse Ox 29 H 119/72 94 09/28/17 06:00 09/28/17 04:01 09/28/17 06:00 - Laboratory Result Diagrams: 09/28/17 02:25 09/28/17 02:25 Laboratory results interpreted by me: 09/28/17 09/28/17 02:25 02:25 WBC 13.4 H RDW 14.1 H Absolute Neutrophils 9.8 H Sodium 145.6 H Discharge - Discharge Clinical Impression: Vaginal delivery Asthma exacerbation Qualifiers: Asthma severity: unspecified severity Asthma persistence: unspecified Qualified Code(s): J45.901 - Unspecified asthma with (acute) exacerbation Pneumonia Qualifiers: Pneumonia type: due to unspecified organism Laterality: right Lung location: middle lobe of lung Qualified Code(s): J18.1 - Lobar pneumonia, unspecified organism Admitting Provider: Hospitalist - [place] [facility] Admitted: Telemetry
[2017-09-28 08:11] VITALS: BP 124/82
[2017-09-28] MEDS ORDERED: CEFTRIAXONE SODIUM 1,000 MG in DEXTROSE 5%-WATER 50 ML IV ONE (09:15)
--- NOTE | 2017-09-28 17:27 | PDOC H&P ---
History of Present Illness Patient complains of: Difficulty breathing History of Present Illness: NICOLA HILLMAN is a 27 year old female patient presented to the emergency room with difficulty breathing and shortness of breath. She is 1 week . She was initially thought to have a possible asthma exacerbation but for the evaluation reveals a possible healthcare associated pneumonia as patient had been in the hospital more or less for the last 1 week. She was evaluated for admission. Patient was treated with antibiotics as well as bronchodilators. Past Medical History Pulmonary Medical History: Reports: Asthma Neurological Medical History: Reports: Migraine Psychiatric Medical History: Reports: Depression Past Surgical History Past Surgical History: Reports: Adenoidectomy, Tonsillectomy Social History Information Source: Patient Smoking Status: Current Every Day Smoker - Advance Directive Resuscitation Status: Full Code Family History Family History: Arthritis, COPD, CVA, DM, Hyperlipidemia, Hypertension, Thyroid Disfunction. denies: CAD, Malignancy Parental Family History Reviewed: Yes Children Family History Reviewed: Yes Sibling(s) Family History Reviewed.: Yes Medication/Allergy Home Medications: Albuterol Sulfate [Albuterol Sulfate 2.5mg/3 mL] 2.5 mg NEB RTQ4HP PRN 09/28/17 Albuterol Sulfate [Proair HFA Inhalation Aerosol 8.5 gm MDI] 1 puff IH Q4HP PRN 09/28/17 Vit/Dha [ Multi + Dha Capsule] 1 cap PO DAILY 09/28/17 Allergies/Adverse Reactions: No Known Allergies Allergy (Verified 09/18/17 05:51) Review of Systems All systems: reviewed and no additional remarkable complaints except as stated Physical Exam Vital Signs: Temp Pulse Resp BP Pulse Ox 23 H 124/82 93 09/28/17 09:00 09/28/17 07:42 09/28/17 09:00 Intake & Output 09/27/17 09/28/17 09/29/17 06:59 06:59 06:59 Intake Total 1310 Balance 1310 Weight 99 kg General appearance: PRESENT: no acute distress, well-developed, well-nourished Head exam: PRESENT: atraumatic, normocephalic Eye exam: PRESENT: conjunctiva pink, EOMI, PERRLA. ABSENT: scleral icterus Ear exam: PRESENT: normal external ear exam Mouth exam: PRESENT: moist, tongue midline Neck exam: ABSENT: carotid bruit, JVD, lymphadenopathy, thyromegaly Respiratory exam: PRESENT: rhonchi. ABSENT: rales, wheezes Cardiovascular exam: PRESENT: RRR. ABSENT: diastolic murmur, rubs, systolic murmur Pulses: PRESENT: normal dorsalis pedis pul Vascular exam: PRESENT: normal capillary refill GI/Abdominal exam: PRESENT: normal bowel sounds, soft. ABSENT: distended, guarding, mass, organolmegaly, rebound, tenderness Rectal exam: PRESENT: deferred Extremities exam: PRESENT: full ROM. ABSENT: calf tenderness, clubbing, pedal edema Neurological exam: PRESENT: alert, awake, oriented to person, oriented to place , oriented to time, oriented to situation, CN II-XII grossly intact. ABSENT: motor sensory deficit Psychiatric exam: PRESENT: appropriate affect, normal mood. ABSENT: homicidal ideation, suicidal ideation Skin exam: PRESENT: dry, intact, warm. ABSENT: cyanosis, rash Results Laboratory Results: 09/28/17 02:25 09/28/17 02:25 09/28/17 09/28/17 02:25 02:25 WBC 13.4 H RBC 4.28 Hgb 12.5 Hct 37.1 MCV 87 MCH 29.3 MCHC 33.8 RDW 14.1 H Plt Count 408 Seg Neutrophils % 73.7 Lymphocytes % 16.3 Monocytes % 5.7 Eosinophils % 3.8 Basophils % 0.5 Absolute Neutrophils 9.8 H Absolute Lymphocytes 2.2 Absolute Monocytes 0.8 Absolute Eosinophils 0.5 Absolute Basophils 0.1 Sodium 145.6 H Potassium 4.4 Chloride 107 Carbon Dioxide 26 Anion Gap 13 BUN 13 Creatinine 0.74 Est GFR ( Amer) > 60 Est GFR (Non-Af Amer) > 60 Glucose 100 Calcium 10.2 Magnesium 1.9 Assessment & Plan - Diagnosis (1) Pneumonia Qualifiers: Pneumonia type: due to unspecified organism Laterality: right Lung location: middle lobe of lung Qualified Code(s): J18.1 - Lobar pneumonia, unspecified organism Is this a current diagnosis for this admission?: Yes - Time Time Spent: 30 to 50 Minutes Smoking Cessation Education: 3 to 10 minutes Medications reviewed and adjusted accordingly: Yes Anticipated discharge: Home Within: within 48 hours - Inpatient Certification Based on my medical assessment, after consideration of the patient's comorbidities, presenting symptoms, or acuity I expect that the services needed warrant INPATIENT care.: Yes Medical Necessity: Need For IV Fluids, Need for IV Antibiotics
== END 2017-09-28 10:16 | disposition other institution (70) ==
LOC: ER 03:11 → UNDOADMIN 06:34 → EH 06:34
DX: J45.901 Unspecified asthma with (acute) exacerbation (principal); J18.1 Lobar pneumonia, unspecified organism; R06.02 Shortness of breath; F17.200 Nicotine dependence, unspecified, uncomplicated; R00.0 Tachycardia, unspecified; R05 Cough
CPT/HCPCS: 94640; 99285; 96372; 96375; 96365; 36415; 87040; 83735; 85025; 80048; 71275; J1956; J2930; J3475; J0696; J3105; J7030; J7620

== ENCOUNTER 2018-11-13 00:55 | Emergency (ER) | payer SELFPAY ==
[2018-11-13] MEDS ORDERED: ALBUTEROL SULFATE 0.083% NEB 2.5 MG/3 ML AMPUL NEB ONE (02:15)
[2018-11-13] MEDS ORDERED: PREDNISONE 20 MG TABLET PO ONE (02:15)
--- NOTE | 2018-11-13 02:22 | ER Document Report ---
ED General - General Chief Complaint: Breathing Difficulty Stated Complaint: DIFFICULTY BREATHING Time Seen by Provider: 11/13/18 02:06 TRAVEL OUTSIDE OF THE [place] IN LAST 30 DAYS: No - HPI Notes: 28-year-old female known history of asthma, still smokes presents with wheezing coughing typically breathing. Gradual onset the last day or 2. Runny nose cough congestion. Moderate intensity, gradual onset, nonradiating. Better after she took an albuterol inhaler at home. No other modifying factors, no other associated symptoms, no other provocative or palliative factors. - Related Data Allergies/Adverse Reactions: No Known Allergies Allergy (Verified 09/18/17 05:51) Past Medical History - Social History Smoking Status: Current Every Day Smoker Chew tobacco use (# tins/day): No Frequency of alcohol use: None Drug Abuse: None Family History: Arthritis, COPD, CVA, DM, Hyperlipidemia, Hypertension, Thyroid Disfunction. denies: CAD, Malignancy Patient has suicidal ideation: No Patient has homicidal ideation: No - Medical History Notes: Includes history of asthma Pulmonary Medical History: Reports: Hx Asthma Neurological Medical History: Reports: Hx Migraine Renal/ Medical History: Reports: Hx Kidney Stones. Denies: Hx Peritoneal Dialysis Psychiatric Medical History: Reports: Hx Depression Past Surgical History: Reports: Hx Adenoidectomy, Hx Tonsillectomy - Immunizations Immunizations up to date: Yes Hx Diphtheria, Pertussis, Tetanus Vaccination: Yes - 2011 Hx Pneumococcal Vaccination: 12/02/11 Review of Systems - Review of Systems Notes: Review of systems as in the history of present illness, otherwise negative x 10 systems. Physical Exam - Vital signs Vitals: Temp Pulse Resp BP Pulse Ox 98.3 F 108 H 22 H 117/61 98 11/13/18 01:10 11/13/18 01:10 11/13/18 01:10 11/13/18 01:10 11/13/18 01:10 - Notes Notes: General: Well developed . HEENT: Normocephalic, atraumatic. Pupils equal round reactive to light. No JVD. Chest: No trauma. Respiratory: Good air exchange, mild end expiratory wheezing Cardiac: Regular rhythm. No murmurs or gallops. Abdomen: Soft, benign. Nondistended. Nontender. Back: No asymmetry or gross abnormality. Motor: Grossly normal power and tone. Neurologic: Alert, nonfocal. Cranial nerves II-12 are intact. Sensation intact. Vascular: Well perfused. Normal peripheral pulses. Skin: No petechiae or purpura. Course - Re-evaluation Re-evalutation: 11/13/18 02:20 Relatively well-appearing 28-year-old female presents with mild asthma exacerbation. Will treat with bronchodilators in the ED, prednisone, prescription for same, outpatient follow-up. - Vital Signs Vital signs: Temp Pulse Resp BP Pulse Ox 98.3 F 108 H 22 H 117/61 98 11/13/18 01:10 11/13/18 01:10 11/13/18 01:10 11/13/18 01:10 11/13/18 01:10 Discharge - Discharge Clinical Impression: Asthma exacerbation Qualifiers: Asthma severity: mild Asthma persistence: unspecified Qualified Code(s): J45.901 - Unspecified asthma with (acute) exacerbation Condition: Good Disposition: HOME, SELF-CARE Instructions: Asthma ([facility]) Prescriptions: Prednisone [Deltasone 20 mg Tablet] 3 tab PO DAILY 5 Days tablet
[2018-11-13 03:22] VITALS: BP 131/62
== END 2018-11-13 03:22 | disposition home or self-care (01) ==
LOC: ER 00:55
DX: J45.901 Unspecified asthma with (acute) exacerbation (principal); R06.02 Shortness of breath; R05 Cough; R09.89 Other specified symptoms and signs involving the circulatory and respiratory systems; R09.81 Nasal congestion; F17.200 Nicotine dependence, unspecified, uncomplicated
CPT/HCPCS: 94640; 99284; J7512

== ENCOUNTER 2019-05-15 00:17 | Emergency (ER) | payer SELFPAY ==
[2019-05-15] MEDS ORDERED: IPRATROPIUM/ALBUTEROL 0.5-2.5 MG/3 ML AMPUL NEB ONE (00:32)
[2019-05-15] MEDS ORDERED: METHYLPREDNISOLONE INJ 125 MG/2 ML SDV IV ONE (00:32)
--- NOTE | 2019-05-15 00:43 | ER Document Report ---
ED General - General Chief Complaint: Asthma Exacerbation Stated Complaint: DIFFICULTY BREATHING Time Seen by Provider: 05/15/19 00:27 Primary Care Provider: MICHAEL WOODSON MD [ACTIVE STAFF] - Follow up as needed VINAY CALVO MD [COMMUNITY BASED STAFF] - Follow up as needed Mode of Arrival: Ambulatory Information source: Patient TRAVEL OUTSIDE OF THE [place] IN LAST 30 DAYS: No - HPI Onset: Other - over the last 3 days Onset/Duration: Gradual Quality of pain: No pain Severity: Moderate Associated symptoms: Productive cough, Other - wheezing Exacerbated by: Other - Pollen Relieved by: Denies Similar symptoms previously: Yes - with asthma attacks Recently seen / treated by doctor: No Notes: 29 year old female with a history of Asthma who has been out of Asthma medications for the last several months here for 3-4 days of wheezing and shortness of breath and now chest pain/pressure (like something is sitting on her chest). The patient says this feels like her asthma and that she tends to have attacks this time of year due to the pollen. The patient denies fevers, chills, sweats but she does have a mildly productive cough of white sputum. The patient denies known sick contacts or recent travel. The patient does smoke. - Related Data Allergies/Adverse Reactions: No Known Allergies Allergy (Verified 09/18/17 05:51) Home Medications: Albuterol Past Medical History - General Information source: Patient - Social History Smoking Status: Current Every Day Smoker Frequency of alcohol use: Occasional Drug Abuse: None Lives with: Family Family History: Arthritis, COPD, CVA, DM, Hyperlipidemia, Hypertension, Thyroid Disfunction. denies: CAD, Malignancy Patient has suicidal ideation: No Patient has homicidal ideation: No Pulmonary Medical History: Reports: Hx Asthma Neurological Medical History: Reports: Hx Migraine Renal/ Medical History: Reports: Hx Kidney Stones. Denies: Hx Peritoneal Dialysis Psychiatric Medical History: Reports: Hx Depression Past Surgical History: Reports: Hx Adenoidectomy, Hx Tonsillectomy - Immunizations Immunizations up to date: Yes Hx Diphtheria, Pertussis, Tetanus Vaccination: Yes - 2011 Hx Pneumococcal Vaccination: 12/02/11 Physical Exam - Vital signs Vitals: Resp BP Pulse Ox 28 H 148/103 H 94 05/15/19 00:32 05/15/19 00:32 05/15/19 00:32 - Notes Notes: GENERAL: Well-appearing, well-nourished and in no acute distress. HEAD: Atraumatic, normocephalic. EYES: Pupils equal round and reactive to light, extraocular movements intact, sclera anicteric, conjunctiva are normal. ENT: Nares patent, oropharynx clear without exudates. Moist mucous membranes. NECK: Normal range of motion, supple without lymphadenopathy or JVD. LUNGS: Diffuse inspiratory and expiratory wheezing, increased work of breathing HEART: Tachycardic, normal rhythm without murmurs, rubs or gallops. ABDOMEN: Soft, nontender, normoactive bowel sounds. No guarding, no rebound. No masses appreciated. EXTREMITIES: Normal range of motion, no pitting or edema. No clubbing or cyanosis. NEUROLOGICAL: Cranial nerves II through XII grossly intact. Normal speech, normal gait. PSYCH: Normal mood, normal affect. SKIN: Warm, Dry, normal turgor, no rashes or lesions noted. Course - Re-evaluation Re-evalutation: 05/15/19 01:40 The patient arrived in respiratory distress with diffuse wheezing. The patient has asthma and she felt she was having an asthma attack. Patient was treated with Solumedrol and Duonebs with resolution of her trouble breathing and wheezing. Chest Xray shows no acute process on my read. Patient has been out of her asthma meds for months now. Will DC with a course of prednisone and with an albuterol inhaler. Patient told to follow up with a PCP. - Vital Signs Vital signs: Temp Pulse Resp BP Pulse Ox 98.5 F 112 H 26 H 140/93 H 90 L 05/15/19 00:35 05/15/19 00:35 05/15/19 00:35 05/15/19 00:35 05/15/19 00:35 - Diagnostic Test Radiology reviewed: Image reviewed, Reports reviewed - EKG Interpretation by Me EKG shows normal: Sinus rhythm, [place], Intervals, QRS Complexes Rate: Normal Rhythm: NSR Discharge - Discharge Clinical Impression: Asthma attack Qualifiers: Asthma severity: severe Asthma persistence: unspecified Qualified Code(s): J45.901 - Unspecified asthma with (acute) exacerbation Condition: Stable Disposition: HOME, SELF-CARE Instructions: Asthma ([facility]) Additional Instructions: Take prednisone as prescribed. Use albuterol as needed for wheezing and shortness of breath. Follow up with a primary care doctor. If you dont have a primary care doctor, follow up with one of the clinics listed in your paperwork. Prescriptions: Prednisone [Deltasone 20 mg Tablet] 3 tab PO DAILY 4 Days #12 tablet Albuterol Sulfate [Proair Digihaler] 90 mcg IH Q4H PRN 30 Days #1 aer.pw.bas PRN Reason: Referrals: VINAY CALVO MD [COMMUNITY BASED STAFF] - Follow up as needed MICHAEL WOODSON MD [ACTIVE STAFF] - Follow up as needed
--- NOTE | 2019-05-15 01:47 | RADIOLOGY REPORT (SQ) ---
EXAM DESCRIPTION: XR CHEST 2 VIEWS COMPLETED DATE/TME: 05/15/2019 00:33 CLINICAL HISTORY: 29 years, Female, eval for pneumonia. patient with diffuse wheezing COMPARISON: None. NUMBER OF VIEWS: TECHNIQUE: LIMITATIONS: None. FINDINGS: No evidence of pulmonary infiltrate or pleural effusion. The heart and mediastinum are unremarkable. Pulmonary vascularity appears normal. IMPRESSION: No acute finding. copyright 2010 [employer]- All Rights Reserved
[2019-05-15 02:18] VITALS: BP 108/79
[2019-05-15] MEDS ORDERED: ALBUTEROL SULFATE HFA (90 MCG/PUFF) 8 GM MDI (1 MDI/ER DISP) IH ONE (02:20)
--- NOTE | 2019-05-15 08:22 | EKG REPORT ---
SEVERITY:- NORMAL ECG - SINUS RHYTHM : Confirmed by: Keagan Velázquez MD 15-May-2019 08:22:14
== END 2019-05-15 02:33 | disposition home or self-care (01) ==
LOC: ER 00:17
DX: J45.901 Unspecified asthma with (acute) exacerbation (principal); R07.89 Other chest pain; R06.02 Shortness of breath; F17.200 Nicotine dependence, unspecified, uncomplicated; R00.0 Tachycardia, unspecified
CPT/HCPCS: 93005; 94640; 99285; 96374; 71046; 93010; J2930; J3490; J7620